=== PATIENT | male | born 1980 | race Caucasian/White ===

== ENCOUNTER 2017-01-15 09:46 | Emergency (ER) | payer OTHER ==
[~2017-01-15] VITALS: Ht 177.8 cm; Wt 82.1 kg
--- OUTSIDE RECORDS SUMMARY | 2017-01-15 09:58 | External Medical Summary Rpt | CCD ---
Demographics Preferred Language Slovak Marital Status Unknown Denominational Affiliation Unknown Race Unknown Ethnic Group Unknown Author Author , LON FORREST Address Unknown Phone Immunization No patient found.
--- OUTSIDE RECORDS SUMMARY | 2017-01-15 09:58 | External Medical Summary Rpt | CCD ---
Author Author , LON FORREST Address Unknown Phone [email or web address] Purpose Continuity of Care Document - through 2016
--- OUTSIDE RECORDS SUMMARY | 2017-01-15 09:58 | External Medical Summary Rpt | CCD ---
Author Author [employer] Organization [employer] Address Unknown Phone Unavailable Purpose Continuity of Care Document - through 2016
--- OUTSIDE RECORDS SUMMARY | 2017-01-15 09:58 | External Medical Summary Rpt | CCD ---
Author Author , LON FORREST Address Unknown Phone [email or web address] Purpose Continuity of Care Document - through 2016
--- OUTSIDE RECORDS SUMMARY | 2017-01-15 09:58 | External Medical Summary Rpt | CCD ---
Demographics Preferred Language Welsh Marital Status Unknown Taoism Affiliation Unknown Race Unknown Ethnic Group Unknown Author Author , LON FORREST Address Unknown Phone Immunization No patient found.
--- NOTE | 2017-01-15 10:22 | Urgent Treatment Center Report ---
History of Present Issue Date/Time Seen by Provider 01/15/17 1021 Visit Reason Pt arrived:Walked Presenting Problem:COUGH AND CONGESTION. FEELS LIKE HE HAS AN UPPER RESPIRATORY INFECTION Location if Accident: Onset of symptoms date/time:/ or onset unknown for:MEDICAL HX UNKNOWN Have you (or family members/close friends) recently traveled outside the [place]? N If Yes, where/when: Have you had exposure to infectious disease within the past month? TB? Other? Specify: c/o nonprod cough, nasal congestion, PND, rhinorrhea and sore throat that started last night. "My entire family has an upper respiratory infection". Hasn' t taken or tried anything since symptoms started. Denies fever, SOA, wheezing. Source patient Exam Limitations no limitations ALLERGIES Coded Allergies: Penicillins (Mild, 01/15/17) Home Medications Reported Medications No Known Home Medications History Medical History General CAD? No Angina: No [place]: No Hypertension? No Hyperlipidemia? No CHF? No DVT? No PE? No COPD? No Asthma? No Anemia? No GERD? No Gastric ulcers? No GI Bleed? No Hernia? No Thyroid Problems? No Hypothyroidism? No CVA? No Seizures? No Diabetes? No Renal Insuffiency? No UTI? No Stones? No BPH? No GB Disease: No Nephritic Syndrome? No Asplenia? No Hepatitis? No Sickle Cell Disease? No Arthritis? No Migraines? No Cataracts? No Glaucoma? No MRSA? No HIV? No TB? No Anxiety? No Depression? No Cancer? No More? No Immunization HX DT/Tetanus 1-4 Years Ago Surgical Hx Previous Surgery?N Social History Smoking Hx Smoker: Never Smoker Tobacco: No Review of Systems All Other Systems Reviewed and Negative Constitutional see HPI, denies malaise Eyes denies drainage ENT see HPI, throat pain (worse with cough). denies: ear pain, ear discharge, throat swelling. Respiratory see HPI, denies wheezing, denies other (retractions) Gastrointestinal denies no symptoms reported Musculoskeletal denies joint pain Skin denies rash Psychiatric/Neurological headache (with cough at times) Physical Exam Vital Signs Vital Signs Date Time Temp Pulse Resp B/P Pulse O2 O2 Flow FiO2 Ox Delivery Rate 01/15 1006 98.5 84 16 122/77 98 General Appearance normal appearance, no apparent distress Eye Exam - bilateral eye normal exam Ear, Nose, Throat normal ENT inspection (x/ minimal nasal congestion) Neck non-tender, supple Respiratory Status Yes: trachea midline, chest symmetrical, non productive cough. No: respiratory distress, use of accessory muscles, pain on inspiration, pain on expiration. Lung Sounds anterior: lungs clear. posterior: lungs clear. bilateral: lungs clear. Cardiovascular regular rate/rhythm, no peripheral edema, no murmur Neurologic alert, oriented x 3 Mental status normal mood/affect Skin normal color, warm/dry Lymphatic no adenopathy Medical Decision Making LABS/Meds/Orders Pt receiving controlled substance in ED? No Departure Departure Time of Disposition 1029 Disposition DC Home or Self Care(routine) Clinical Impression Primary Impression: Upper respiratory virus Condition STABLE Referrals NO REFERRAL Follow up with primary care doctor or return to [facility] if you don't have a PCP IMMEDIATELY for new or worsening symptoms OR no noticeable improvement over the next 48-72 hours. 911 for difficulty breathing or swallowing Patient Instructions DI for Viral Upper Respiratory Infection -- Adult Additional Instructions * No sign of bacterial infection. Likely viral. Virus can take 7-14 days to run their course * Monitor Temp. Tylenol every 4 hours as needed no more then 5 times a day or 4000mg in 24 hours and/or ibuprofen every 6 hours as needed no more then 3200mg in 24 hours (as long as your primary care doctor has told you that it is ok to take both) for fever/aches/pain. ER if fever no less than 101 despite tylenol and ibuprofen * Encourage fluids, water, gatorade, powerade, pedialyte if infant/toddler/child * warm salt water gargles * warm fluids * sore throat lozenges * sleep elevated * humidifier/vaporizer * Bromfed may cause drowsiness. Know how it effects you (or your child) before driving, caring for small children, or sending your child to school. No other antihistamines/allergy medications while taking bromfed. Discharge Counseling Counseled pt/family regarding diagnosis, test results, medications/RX, home care, follow up needs Prescriptions Current Visit Scripts D-METHORPHAN HB/P-EPD HCL/BPM (Bromfed Dm Cough Syrup) 10 ML PO QIDP PRN cough #240 ML at 1031
[2017-01-15] MEDS ORDERED: BROMFED DM COU118 ML PO (10:31)
[2017-01-15 10:32] VITALS: BP 122/77
== END 2017-01-15 10:32 | disposition home or self-care (01) ==
LOC: UTC 09:46
DX: J06.9 Acute upper respiratory infection, unspecified (principal); Z88.0 Allergy status to penicillin

== ENCOUNTER 2017-01-20 09:51 | Emergency (ER) | payer OTHER ==
[~2017-01-20] VITALS: Ht 177.8 cm; Wt 83.9 kg
[~2017-01-20 09:51] MED LIST: BROMFED DM COU118 ML PO
--- OUTSIDE RECORDS SUMMARY | 2017-01-20 09:55 | External Medical Summary Rpt | CCD ---
Author Author , LON FORREST Address Unknown Phone Purpose Continuity of Care Document - through 2016
--- OUTSIDE RECORDS SUMMARY | 2017-01-20 09:56 | External Medical Summary Rpt | CCD ---
Demographics Preferred Language Irish Marital Status Unknown Gnosticism Affiliation Unknown Race Unknown Ethnic Group Unknown Author Author , LON FORREST Address Unknown Phone Immunization No patient found.
--- OUTSIDE RECORDS SUMMARY | 2017-01-20 09:56 | External Medical Summary Rpt ---
Author Author LON Mendoza, LON Mendoza Organization [employer] Address Unknown Phone Unavailable
--- OUTSIDE RECORDS SUMMARY | 2017-01-20 09:56 | External Medical Summary Rpt | CCD ---
Demographics Preferred Language Welsh Marital Status Unknown Moravian Affiliation Unknown Race Unknown Ethnic Group Unknown Author Author , LON FORREST Address Unknown Phone Immunization No patient found.
[2017-01-20] MEDS ORDERED: PROMETHAZINE D118 ML PO (10:17)
[2017-01-20] MEDS ORDERED: CLARITIN 10MG T10 MG PO (10:17)
[2017-01-20] MEDS ORDERED: ZITHROMAX Z PA250 MG PO (10:17)
[2017-01-20] MEDS ORDERED: MEDROL 4MG. DOSE4 MG PO (10:17)
[2017-01-20] MEDS ORDERED: FLONASE 50 MCG16 GM (10:17)
[2017-01-20 10:18] VITALS: BP 134/84
--- NOTE | 2017-01-20 10:18 | Urgent Treatment Center Report ---
History of Present Issue Date/Time Seen by Provider 01/20/17 1012 Visit Reason Pt arrived:Walked Presenting Problem:COUGH, CONGESTION BEGAN MONDAY, SEEN HERE MONDAY Location if Accident: Onset of symptoms date/time:/ or onset unknown for:MEDICAL HX UNKNOWN Have you (or family members/close friends) recently traveled outside the [place]? N If Yes, where/when: Have you had exposure to infectious disease within the past month? TB? Other? Specify: Patient state that he has had cough and congestion for several days States that he was seen Monday and diagnosed with viral infection State that he has continued to get worse. State that he has been coughing, sinus pain and congestion along with nagging cough. State that he feels like it is trying to move into his chest area ALLERGIES Coded Allergies: Penicillins (Mild, 01/15/17) Home Medications Active Scripts D-METHORPHAN HB/P-EPD HCL/BPM (Bromfed Dm Cough Syrup) 10 ML PO QIDP PRN cough #240 ML Prov: 01/15/17 History Medical History General CAD? No Angina: No [place]: No Hypertension? No Hyperlipidemia? No CHF? No DVT? No PE? No COPD? No Asthma? No Anemia? No GERD? No Gastric ulcers? No GI Bleed? No Hernia? No Thyroid Problems? No Hypothyroidism? No CVA? No Seizures? No Diabetes? No Renal Insuffiency? No UTI? No Stones? No BPH? No GB Disease: No Nephritic Syndrome? No Asplenia? No Hepatitis? No Sickle Cell Disease? No Arthritis? No Migraines? No Cataracts? No Glaucoma? No MRSA? No HIV? No TB? No Anxiety? No Depression? No Cancer? No More? No Immunization HX DT/Tetanus 1-4 Years Ago Surgical Hx Previous Surgery?N Social History Smoking Hx Smoker: Never Smoker Tobacco: No Review of Systems All Other Systems Reviewed and Negative ENT nose congestion, throat pain. Respiratory cough, denies shortness of breath, denies wheezing Physical Exam Vital Signs Vital Signs Date Time Temp Pulse Resp B/P Pulse O2 O2 Flow FiO2 Ox Delivery Rate 01/20 1001 98.4 90 18 134/84 98 General Appearance normal appearance, WD/WN, no apparent distress Ear, Nose, Throat THroat red, irritated drainage noted in back of throat Respiratory Status Yes: trachea midline, chest symmetrical, non tender chest. No: respiratory distress. Cardiovascular normal exam, regular rate/rhythm, no peripheral edema Neurologic alert, normal exam, oriented x 3 Medical Decision Making LABS/Meds/Orders Pt receiving controlled substance in ED? No Results/Orders Laboratory Tests 01/20/17 1007: Influenza Type A Ag NOT DETECTED, Influenza Type B Ag NOT DETECTED Orders Procedure Date/time Status [facility] FLU A,B 01/20 1007 Complete Departure Departure Time of Disposition 1014 Disposition DC Home or Self Care(routine) Clinical Impression Primary Impression: Upper respiratory infection Qualifiers: URI type: unspecified URI Qualified Code: J06.9 - Acute upper respiratory infection, unspecified Condition STABLE Patient Instructions Cough, DI for Nasal Congestion, Sore Throat Additional Instructions * Monitor Temp. Tylenol and/or Ibuprofen as needed. ER if fever is no less than 101 despite alternating Tylenol and Ibuprofen * Encourage fluids, water, Gatorade, powerade, pedialyte if infant/toddler/or child * Warm salt water gargles for throat irritation *Warm fluids *Sore throat lozenges *Sleep elevated *humidifier or vaporizer Lots of rest Increase fluids, water, Gatorade, powerade *Flonase 2 sprays each nostril daily but may take 2-3 days to notice improvement with it *Your throat swab was sent to lab for culture. Those results area typically sent to your primary care physician. Be sure to follow up in 2-3 days if no improvement so they can review those results and treat if necessary If you dont have primary care I recommend you get one, but in the mean time you will have to return to a walk in clinic Follow up IMMEDIATELY for new or worsening of symptoms OR no noticeable improvement over the next 48-72 hours. 911 immediately for any life threatening symptoms such as chest pain or difficulty breathing Discharge Counseling Counseled pt/family regarding diagnosis, test results, medications/RX, home care, follow up needs Prescriptions Current Visit Scripts Azithromycin (Zithromycin (Z-WALDO) 250MG Tab) 250 MG PO DAILY #6 TAB TAKE TWO (2) TABLETS ON DAY 1, THEN ONE (1) TABLET DAY #2 THRU #5 Loratadine (Claritin 10MG) 10 MG PO DAILY #30 TAB Methylprednisolone (Medrol Dose Waldo) 4 MG PO UD #1 WALDO TAKE DIRECTED ON PACKAGING Fluticasone Propionate (Flonase 50 Mcg Nasal [place]) 2 SPRAY NA DAILY #1 BOT PROMETHAZINE/DEXTROMETHORPHAN (Promethazine-Dm Syrup) 5 ML PO Q6HP PRN cough #150 SYR at 101
== END 2017-01-20 10:19 | disposition home or self-care (01) ==
LOC: UTC 09:51
DX: J06.9 Acute upper respiratory infection, unspecified (principal); Z88.0 Allergy status to penicillin

== ENCOUNTER 2017-01-23 12:33 | Emergency (ER) | payer OTHER ==
[~2017-01-23] VITALS: Ht 177.8 cm; Wt 83.9 kg
[~2017-01-23 12:33] MED LIST changes: +CLARITIN 10MG T10 MG PO; +FLONASE 50 MCG16 GM; +MEDROL 4MG. DOSE4 MG PO; +PROMETHAZINE D118 ML PO; +ZITHROMAX Z PA250 MG PO
--- OUTSIDE RECORDS SUMMARY | 2017-01-23 13:06 | External Medical Summary Rpt ---
Author Author [employer], [employer]AJ[employer]Y [employer] Organization [employer] Address Unknown Phone Unavailable Results Influenza virus A+B Ag [Presence] in Unspecified specimen Observa Value Referen Units Interpr Notes Date tion ce etation Range Influen NOT NOT No No No Dec 1 za DETECTE DETECTD informa informa informa 2017 virus A D tion in tion in tion in 10:07 Ag source source source AM [Presen data data data ce] in Unspeci fied specime n INFLUEN NOT NOT No No LOT # Dec 1 ZA B DETECTE DETECTD informa informa @[id number] ANTIGEN D tion in tion in 4 EXP 10:07 source source DATE AM data data @19-9-3 0
--- OUTSIDE RECORDS SUMMARY | 2017-01-23 13:06 | External Medical Summary Rpt | CCD ---
Author Author , POL[employer] Organization [employer] Address Unknown Phone [email or web address] Purpose Continuity of Care Document - 01-20-2017 through 2016 Results Labs Lab Lab Date Result Refere Interp Status Commen Order Detail nces retati t Range on Rapid influenza A and B antigen detectio (01-20-2017 10:07) Influen NOT NOT complet za A ag 017 DETECTE DETECTD ed QL 10:07 D NOT DETECTE D L INFLUEN NOT NOT complet ZA B 017 DETECTE DETECTD ed ANTIGEN 10:07 D Comment: LOT # @[id number] EXP DATE @08-11-29 Influenza virus A+B Ag [Presence] in Unspecified specimen (01-20-2017 10:07) Influen NOT NOT complet za 017 DETECTE DETECTD ed virus A 10:07 D Ag [Presen ce] in Unspeci fied specime n INFLUEN NOT NOT complet ZA B 017 DETECTE DETECTD ed ANTIGEN 10:07 D
--- OUTSIDE RECORDS SUMMARY | 2017-01-23 13:06 | External Medical Summary Rpt | CCD ---
Demographics Preferred Language Hungarian Marital Status Unknown Roman Catholic Affiliation Unknown Race Unknown Ethnic Group Unknown Author Author , LON FORREST Address Unknown Phone Immunization No patient found.
--- OUTSIDE RECORDS SUMMARY | 2017-01-23 13:06 | External Medical Summary Rpt ---
[...] 1 ZA B DETECTE DETECTD informa informa @[id number] ANTIGEN D tion in tion in 4 EXP 10:07 source source DATE AM data data @19-9-3 0
--- OUTSIDE RECORDS SUMMARY | 2017-01-23 13:06 | External Medical Summary Rpt | CCD ---
Author Author , POLA Organization [employer] Address Unknown Phone [email or web address] Purpose Continuity of Care Document - 01-20-2017 [...] ed ANTIGEN 10:07 D Comment: LOT # @[id number] EXP DATE @08-11-29 Influenza virus A+B Ag [Presence] in Unspecified specimen (01-20-2017 10:07) Influen NOT NOT complet za 017 DETECTE DETECTD ed virus A 10:07 D Ag [Presen ce] in Unspeci fied specime n INFLUEN NOT NOT complet ZA B 017 DETECTE DETECTD ed ANTIGEN 10:07 D
--- OUTSIDE RECORDS SUMMARY | 2017-01-23 13:06 | External Medical Summary Rpt | CCD ---
Demographics Preferred Language Indonesian Marital Status Unknown Alevism Affiliation Unknown Race Unknown Ethnic Group Unknown Author Author , LON FORREST Address Unknown Phone Immunization No patient found.
--- NOTE | 2017-01-23 14:52 | RADIOLOGY REPORT PS360 ---
CHEST(2 VIEWS-NOT PORTABLE) HISTORY: COUGH ORDERING PHYSICIAN: Erick Vega MD PATIENT AGE: 36 years COMPARISON: None available FINDINGS: The cardiomediastinal silhouette and pulmonary vascularity are within normal limits. The lungs are clear without infiltrates, suspicious nodules, or pleural effusions. No acute bony abnormalities. IMPRESSION: Negative chest, no acute finding
--- NOTE | 2017-01-23 15:52 | Emergency Room Report ---
History of Present Illness Time Seen by 1303 Presenting Problem in Triage Pt arrived:Walked Presenting Problem:PT ADVISES HE HAS BEEN SEEN AT [facility] TWICE FOR COUGH. ADVISES HIS COUGH HAS GOTTEN WORSE Onset of symptoms date/time:/ or onset unknown for:MEDICAL HX UNKNOWN Treatment Prior to Arrival: EQUIPMENT INSTALLER Provided by: Sepsis Risk Assessment: Temp: 98.2 B/P: 132/78 MAP: 107 Pulse: 97 Resp: 16 Recent fever? N Clinical Suspician of Infection? N Mental Status: 1 - Regular (Normal Baseline) Sepsis Risk:Low Sepsis Risk Have you (or family members/close friends) recently traveled outside the [place]? N If Yes, where/when: Have you had exposure to infectious disease within the past month? N TB? Other? 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 - has been seen x 2 at [facility] and on above meds Cardiac Chest Pain Chest pain indicative of cardiac No Timing/Duration this evening Severity moderate ALLERGIES Coded Allergies: Penicillins (Mild, 01/15/17) Home Medications Active Scripts Azithromycin (Zithromycin (Z-WALDO) 250MG Tab) 250 MG PO DAILY #6 TAB Prov: 01/20/17 Loratadine (Claritin 10MG) 10 MG PO DAILY #30 TAB Prov: 01/20/17 Methylprednisolone (Medrol Dose Waldo) 4 MG PO UD #1 WALDO Prov: 01/20/17 Fluticasone Propionate (Flonase 50 Mcg Nasal [place]) 2 SPRAY NA DAILY #1 BOT Prov: 01/20/17 PROMETHAZINE/DEXTROMETHORPHAN (Promethazine-Dm Syrup) 5 ML PO Q6HP PRN cough #150 SYR Prov: 01/20/17 D-METHORPHAN HB/P-EPD HCL/BPM (Bromfed Dm Cough Syrup) 10 ML PO QIDP PRN cough #240 ML Prov: 01/15/17 History Medical History General CAD? No Angina: No [place]: No Hypertension? No Hyperlipidemia? No CHF? No DVT? No PE? No COPD? No Asthma? No Anemia? No GERD? No Gastric ulcers? No GI Bleed? No Hernia? No Thyroid Problems? No Hypothyroidism? No CVA? No Seizures? No Diabetes? No Renal Insuffiency? No End Stage Renal Disease? No UTI? No Stones? No BPH? No GB Disease: No Nephritic Syndrome? No Asplenia? No Hepatitis? No Sickle Cell Disease? No Arthritis? No Migraines? No Cataracts? No Glaucoma? No MRSA? No HIV? No TB? No Anxiety? No Depression? No Cancer? No More? No Immunization Hx DT/Tetanus 1-4 Years Ago Surgical Hx Previous Surgery?N Social History Smoking Hx Smoker: Current Every Day Smoker Tobacco: Yes Type Cigarettes Drugs none Review of Systems All Other Systems Reviewed and Negative Constitutional denies fever Eyes denies drainage ENT denies: ear discharge, epistaxis, throat pain. Respiratory cough, denies shortness of breath, denies wheezing Cardiovascular denies chest pain, denies palpitations, denies syncope Gastrointestinal denies abdominal pain, denies diarrhea, denies vomiting Genitourinary denies: dysuria, frequency, hesitancy, hematuria. Musculoskeletal denies back pain, denies joint pain, denies joint swelling, denies neck pain Skin denies rash Psychiatric/Neurological denies headache, denies seizure Physical Exam Vital Signs Vital Signs Date Time Temp Pulse Resp B/P Pulse O2 O2 Flow FiO2 Ox Delivery Rate 01/23 1513 97 16 132/78 97 / 1403 98 16 138/69 97 01/23 1247 98.2 97 16 141/90 98 - WBC >12,000 or <4,000 or 10% bands? 2 or more SIRS Criteria Met? B/P:132/78 MAP:107 Creatinine >2.0? UA output<0.5ml/kg/hr for 2 hrs? Platelet count >100,000? Lactate >2.0mmol/1? INR >1.2 or PTT > than 60 sec? Evidence of Organ Dysfunction? Provider documented clinical suspician of infection? N Sepsis Criteria Count: 1 Sepsis Risk: Low Sepsis Risk General Appearance no apparent distress Eye Exam - bilateral eye PERRL, bilateral eye EOMI Ear, Nose, Throat normal ENT inspection Neck supple Respiratory Status No: respiratory distress. Lung Sounds bilateral: lungs clear. 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 No XRAY/CT/US XRAY/CT/US XRAY chest XR interpretation by reviewed by me Xray Results normal/NAD Departure Departure Time of Disposition 1559 Disposition DC Home or Self Care(routine) Clinical Impression Primary Impression: Bronchitis Secondary Impressions: Reactive airway disease Qualifiers: Asthma severity: moderate Asthma persistence: persistent Asthma complication type: uncomplicated Qualified Code: J45.40 - Moderate persistent asthma, uncomplicated Condition STABLE Patient Instructions DI for Cough -- Adult Additional Instructions fluids and see pcp for follow up Discharge Counseling Counseled pt/family regarding diagnosis, test results, medications/RX, follow up needs Prescriptions Current Visit Scripts BENZONATATE (Benzonatate) 100 MG PO Q6HP PRN cough #20 CAP ED Critical Care Critical Care No at 1601
--- NOTE | 2017-01-23 15:52 | Emergency Room Report ---
History of Present Illness Time Seen by [id number] Presenting Problem in Triage Pt arrived:Walked Presenting Problem:PT ADVISES HE HAS BEEN SEEN AT THE [facility] TWICE FOR COUGH. ADVISES HIS COUGH HAS GOTTEN WORSE Onset of symptoms date/time:/ or onset unknown for:MEDICAL HX UNKNOWN Treatment Prior to Arrival: CALIBRATION TECHNICIAN Provided by: Sepsis Risk Assessment: Temp: 98.2 B/P: 132/78 MAP: 107 Pulse: 97 Resp: 16 Recent fever? N Clinical Suspician of Infection? N Mental Status: 1 - Regular (Normal Baseline) Sepsis Risk:Low Sepsis Risk Have you (or family members/close friends) recently traveled outside the [place]? N If Yes, where/when: Have you had exposure to infectious disease within the past month? N TB? Other? 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 - has been seen x 2 at [facility] and on above meds Cardiac Chest Pain Chest pain indicative of cardiac No Timing/Duration this evening Severity moderate ALLERGIES Coded Allergies: Penicillins (Mild, 01/15/17) Home Medications Active Scripts Azithromycin (Zithromycin (Z-WALDO) 250MG Tab) 250 MG PO DAILY #6 TAB Prov: 01/20/17 Loratadine (Claritin 10MG) 10 MG PO DAILY #30 TAB Prov: 01/20/17 Methylprednisolone (Medrol Dose Waldo) 4 MG PO UD #1 WALDO Prov: 01/20/17 Fluticasone Propionate (Flonase 50 Mcg Nasal Vera) 2 SPRAY NA DAILY #1 BOT Prov: 01/20/17 PROMETHAZINE/DEXTROMETHORPHAN (Promethazine-Dm Syrup) 5 ML PO Q6HP PRN cough #150 SYR Prov: 01/20/17 D-METHORPHAN HB/P-EPD HCL/BPM (Bromfed Dm Cough Syrup) 10 ML PO QIDP PRN cough #240 ML Prov: 01/15/17 History Medical History General CAD? No Angina: No NH: No Hypertension? No Hyperlipidemia? No CHF? No DVT? No PE? No COPD? No Asthma? No Anemia? No GERD? No Gastric ulcers? No GI Bleed? No Hernia? No Thyroid Problems? No Hypothyroidism? No CVA? No Seizures? No Diabetes? No Renal Insuffiency? No End Stage Renal Disease? No UTI? No Stones? No BPH? No GB Disease: No Nephritic Syndrome? No Asplenia? No Hepatitis? No Sickle Cell Disease? No Arthritis? No Migraines? No Cataracts? No Glaucoma? No MRSA? No HIV? No TB? No Anxiety? No Depression? No Cancer? No More? No Immunization Hx DT/Tetanus 1-4 Years Ago Surgical Hx Previous Surgery?N Social History Smoking Hx Smoker: Current Every Day Smoker Tobacco: Yes Type Cigarettes Drugs none Review of Systems All Other Systems Reviewed and Negative Constitutional denies fever Eyes denies drainage ENT denies: ear discharge, epistaxis, throat pain. Respiratory cough, denies shortness of breath, denies wheezing Cardiovascular denies chest pain, denies palpitations, denies syncope Gastrointestinal denies abdominal pain, denies diarrhea, denies vomiting Genitourinary denies: dysuria, frequency, hesitancy, hematuria. Musculoskeletal denies back pain, denies joint pain, denies joint swelling, denies neck pain Skin denies rash Psychiatric/Neurological denies headache, denies seizure Physical Exam Vital Signs Vital Signs Date Time Temp Pulse Resp B/P Pulse O2 O2 Flow FiO2 Ox Delivery Rate 01/23 1513 97 16 132/78 97 / 1403 98 16 138/69 97 01/23 1247 98.2 97 16 141/90 98 - WBC >12,000 or <4,000 or 10% bands? 2 or more SIRS Criteria Met? B/P:132/78 MAP:107 Creatinine >2.0? UA output<0.5ml/kg/hr for 2 hrs? Platelet count >100,000? Lactate >2.0mmol/1? INR >1.2 or PTT > than 60 sec? Evidence of Organ Dysfunction? Provider documented clinical suspician of infection? N Sepsis Criteria Count: 1 Sepsis Risk: Low Sepsis Risk General Appearance no apparent distress Eye Exam - bilateral eye PERRL, bilateral eye EOMI Ear, Nose, Throat normal ENT inspection Neck supple Respiratory Status No: respiratory distress. Lung Sounds bilateral: lungs clear. 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 No XRAY/CT/US XRAY/CT/US XRAY chest XR interpretation by reviewed by me Xray Results normal/NAD Departure Departure Time of Disposition 1559 Disposition DC Home or Self Care(routine) Clinical Impression Primary Impression: Bronchitis Secondary Impressions: Reactive airway disease Qualifiers: Asthma severity: moderate Asthma persistence: persistent Asthma complication type: uncomplicated Qualified Code: J45.40 - Moderate persistent asthma, uncomplicated Condition STABLE Patient Instructions DI for Cough -- Adult Additional Instructions fluids and see pcp for follow up Discharge Counseling Counseled pt/family regarding diagnosis, test results, medications/RX, follow up needs Prescriptions Current Visit Scripts BENZONATATE (Benzonatate) 100 MG PO Q6HP PRN cough #20 CAP ED Critical Care Critical Care No at 1601
[2017-01-23] MEDS ORDERED: TESSALON PERLE100 MG PO (16:01)
[2017-01-23 16:14] VITALS: BP 132/78
[2017-01-23 16:19] LABS: CORONAVIRUS 229E NOT DETECTED (NOT DETECTE); CORONAVIRUS HKU 1 NOT DETECTED (NOT DETECTE); CORONAVIRUS NL63 NOT DETECTED (NOT DETECTE); CORONAVIRUS OC43 NOT DETECTED (NOT DETECTE)
[2017-01-23 17:40] LABS: RHINOVIRUS/ENTEROVIRUS DETECTED (NOT DETECTE)
== END 2017-01-23 16:14 | disposition home or self-care (01) ==
LOC: ER 12:33
PROVIDERS: Emergency Medicine
DX: J20.9 Acute bronchitis, unspecified (principal); J45.40 Moderate persistent asthma, uncomplicated; F17.210 Nicotine dependence, cigarettes, uncomplicated